=== PATIENT | male | born 1935 | race Caucasian/White ===

== ENCOUNTER 2020-09-09 07:20 | Observation (INO) ==
--- NOTE | 2020-08-15 09:12 | PAT Medication Instructions ---
Medication Instructions Date of Service August 15, 2020 Home Medications aspirin [Aspir-81] 81 mg PO PM lisinopril 20 mg PO PM [id number]-fvy-wppgc-vit K-lycop [One-A-Day Men's 50 Plus] 1 tab PO PM [id number] [Macular Health Formula] 1 cap PO PM naproxen sodium [Aleve] 220 mg PO BID PRN omeprazole magnesium [Prilosec OTC] 20 mg PO BID psyllium [Fiber Therapy (psyllium seed)] 3.4 g PO QAM ASK your surgeon for instructions naproxen sodium [Aleve] 220 mg PO BID PRN ASK your prescriber and surgeon aspirin [Aspir-81] 81 mg PO PM STOP taking 2 weeks before surgery (or as soon as possible if surgery is within 2 weeks) efzjhifs-wwa-arxam-vit K-lycop [One-A-Day Men's 50 Plus] 1 tab PO PM [id number] [Macular Health Formula] 1 cap PO PM DO NOT take the morning of surgery psyllium [Fiber Therapy (psyllium seed)] 3.4 g PO QAM Take morning of surgery With a small sip of water, OTHERWISE NOTHING TO EAT OR DRINK AFTER MIDNIGHT: omeprazole magnesium [Prilosec OTC] 20 mg PO BID Take evening before surgery lisinopril 20 mg PO PM omeprazole magnesium [Prilosec OTC] 20 mg PO BID Other Notes If you have any questions please call us at [phone] or [phone] or [phone] or [phone]
--- NOTE | 2020-08-16 11:17 | Anesthesiology Consultation ---
Date of Service August 16, 2020 Assessment & Plan (1) Encounter for pre-operative examination: - COVID screening: Per assessment on 08/16: Travel screen negative, no known COVID-19 positive contacts or current COVID-19 related symptoms. Patient is fully vaccinated. Surgeon arranging preop COVID testing (scheduled 09/03; [facility]). Awaiting results. - ASA instructions: per surgeon/prescriber Chart Review Chart Review: Acceptable Risk for Surgery and Patient seen in Pre Admission Testing Teaching & Discussion Pre-Anesthesia Teaching/Discussion Notes: Instructed NPO after midnight before surgery,except medications with 15 cc of water. Medication instructions provided according to the PAT guidelines. History Surgery Operation Date: 09/09/20 11:40 Proposed Procedures p Right Reverse Total Shoulder Arthroplasty - Yusuf Noe MD Height/Weight Height: 5 ft 6 in Weight: 72.3 kg Allergies Allergy/AdvReac Type Severity Reaction Status Date / Time codeine AdvReac Mild "Funny, Verified 08/16/20 11:18 strange" feeling Medications Home Medications Medication Instructions Recorded Confirmed Last Taken aspirin [Aspir-81] 81 mg PO PM 08/02/20 08/02/20 Unknown lisinopril 20 mg PO PM 08/02/20 08/02/20 Unknown tmvrdunk-sgn-okjyg-vit K-lycop 1 tab PO PM 08/02/20 08/02/20 Unknown [One-A-Day Men's 50 Plus] [id number]-[id number]-wdvoyh-[id number] 1 cap PO PM 08/02/20 08/02/20 Unknown [Macular Health Formula] naproxen sodium [Aleve] 220 mg PO BID PRN 08/02/20 08/02/20 Unknown omeprazole magnesium [Prilosec OTC] 20 mg PO BID 08/02/20 08/02/20 Unknown psyllium [Fiber Therapy (psyllium 3.4 g PO QAM 08/02/20 08/02/20 Unknown seed)] Past Medical History Medical History Anemia No known of blood transfusions Diverticular disease GERD (gastroesophageal reflux disease) controlled Hypertension Kidney stones passed without intervention Macular degeneration Osteoarthritis Exercise / Class Metabolic Activity II 4-5 Yardwork/Stairs/Walk up hill (one flight of stairs (no chest pain, no SOB)) Past Family History Family History Sister Diabetes Past Surgical History Surgical History History of arthroscopy of shoulder R/L History of carpal tunnel release right History of colonoscopy History of esophagogastroduodenoscopy (EGD) History of tooth extraction Hx of inguinal hernia repair R/L Past Anesthesia History No Hx of Anesthesia Complications and No Family Hx of Anesthesia Complications History of PONV No Hx of PONV and No Hx of Motion Sickness Social History Smoking Status: Former smoker Do You Dip or Chew Tobacco: No Smoking End Date: Quit 1995 Hx Alcohol Use: Yes Alcohol type: wine alcohol intake frequency: 0-2 drinks per day (1 glass wine/evening) Hx Substance Use: No substance use type: does not use Review of Systems No snoring. Patient denies chest pain, shortness of breath, dyspnea on exertion, fever, chills, cough, wheezing, palpitations. Physical Exam Vital Signs VITALS BP 142/72 P 78 TEMP 97.7 SP02 97%RA RESP 18 PHYSICAL Full neck and c-spine range of motion. Full TMJ range of motion. TMD 3 finger breaths Mallampati Score 3 Dentition: upper/lower partial Lungs: clear throughout to auscultation Cardiac: regular rate and rhythm, no murmurs noted Spine: normal Carotid arteries: negative bruit Extremities: no edema Testing Laboratory Results 08/16/20 11:52 08/16/20 11:52 PT 10.0 Seconds (9.0-12.0) 08/16/20 11:52 INR 1.0 (0.9-1.1) 08/16/20 11:52 APTT 25.2 Seconds (21.0-31.0) 08/16/20 11:52 Hemoglobin A1c 6.1 % (4.5-5.6) H 08/16/20 11:52 Urine Color Yellow 08/16/20 11:52 Urine Appearance Clear (Clear) 08/16/20 11:52 Urine pH 6.0 (4.5-7.5) 08/16/20 11:52 Ur Specific [place] 1.010 (1.000-1.030) 08/16/20 11:52 Urine Protein Negative (Negative) 08/16/20 11:52 Urine Glucose (UA) Negative (Negative) 08/16/20 11:52 Urine Ketones Negative (Negative) 08/16/20 11:52 Urine Nitrite Negative (Negative) 08/16/20 11:52 Ur Leukocyte Esterase Negative (Negative) 08/16/20 11:52 Blood Type O Positive 08/16/20 11:52 Antibody Screen NEGATIVE 08/16/20 11:52 Low WBC > to be forwarded to PCP for continuity of care* Electrocardiogram Date: 08/16/20 NSR with sinus arrhythmia at 76bpm. "Normal ECG." Chest X-Ray Date: 08/16/20 FINDINGS: Lung volumes are normal. There is no pneumothorax or pleural effusion. Cardiac size is normal. Mediastinal contours are normal. There is no evidence for pulmonary edema. A 5 mm right lower lobe nodule is unchanged from prior abdominal CT. This is benign given stability. There is no consolidation to suggest pneumonia. IMPRESSION: No acute cardiopulmonary findings.
--- NOTE | 2020-08-16 12:26 | XRay Report ---
XR chest Pre-admission PA/Lat CLINICAL HISTORY: Preoperative evaluation. COMPARISON STUDY: No previous studies for comparison. FINDINGS: Lung volumes are normal. There is no pneumothorax or pleural effusion. Cardiac size is norm al. Mediastinal contours are normal. There is no evidence for pulmonary edema. A 5 mm right lower lob e nodule is unchanged from prior abdominal CT. This is benign given stability. There is no consolidat ion to suggest pneumonia. IMPRESSION: No acute cardiopulmonary findings. ACT 112: Negative or not required by law. Electronically signed by: Braxton Cid M.D. 08/16/2020 12:24 PM
[2020-08-16 13:17] LABS: Appearance Urine Clear (Clear); Basophils # (auto) 0.03 K/uL (0-0.2); Basophils % (auto) 0.8 %; Bilirubin Urine Negative (Negative); Blood Urine Negative (Negative); Color Urine Yellow; Eosinophils # (auto) 0.23 K/uL (0-0.5); Eosinophils % (auto) 6.4 %; Glucose Urine UA Negative (Negative); Hematocrit (blood only) 38.5 % (42-52); Hemoglobin 12.9 g/dL (14.0-18.0); Ketones Urine Negative (Negative); Leukocyte Esterase Urine Negative (Negative); Lymphocytes # (auto) 0.72 K/uL (1.2-3.4); Lymphocytes % (auto) 20.2 %; Mean Corpuscular Hemoglobin 33.3 pg (25-34); Mean Corpuscular Hgb Conc 33.5 g/dL (32-36); Mean Corpuscular Volume 99.5 fL (80-100); Mean Platelet Volume 10.8 fL (7.4-10.4); Monocytes # (auto) 0.47 K/uL (0.11-0.59); Monocytes % (auto) 13.2 %; Neutrophils # (auto) 2.12 K/uL (1.4-6.5); Neutrophils % (auto) 59.4 %; Nitrite Urine Negative (Negative); Platelet Count 253 K/uL (130-400); Protein Urine Negative (Negative); RDW Coefficient of Variation 12.7 % (11.5-14.5); RDW Standard Deviation 46.4 fL (36.4-46.3); Red Blood Count 3.87 M/uL (4.7-6.1); Urobilinogen Urine Negative (Negative); White Blood Count 3.57 K/uL (4.8-10.8)
[2020-08-16 13:48] LABS: Partial Thromboplastin Time 25.2 Seconds (21.0-31.0)
[2020-08-16 14:38] LABS: BUN Creatinine Ratio 29.9 (10-20); Calcium 9.3 mg/dl (8.5-10.1); Creatinine Clr Calc Pharmacy 39.1 ml/min; Est GFR (African American) 59.7; Est GFR (Non-African American) 51.5
--- NOTE | 2020-08-16 16:06 | Electrocardiogram Report ---
Test Reason : Blood Pressure : / mmHG Vent. Rate : 076 BPM Atrial Rate : 076 BPM P-R Int : 160 ms QRS Dur : 094 ms QT Int : 370 ms P-R-T Axes : 071 086 025 degrees QTc Int : 416 ms Normal sinus rhythm with sinus arrhythmia Normal ECG When compared with ECG of 27-JAN-2013 15:09, No significant change was found Confirmed by Luis Orozco ([id number]) on 08/16/2020 4:06:03 PM Referred By: Yusuf Noe Confirmed By:Chuy Orozco
[2020-08-17 05:35] LABS: Estimated Average Glucose 128 mg/dl; Hemoglobin A1C 6.1 % (4.5-5.6)
--- NOTE | 2020-09-07 19:40 | History & Physical Report ---
Date of Service September 07, 2020 Assessment & Plan (1) Rotator cuff arthropathy of right shoulder: Treatment options discussed with patient. He has failed conservative measures as above. He would like to proceed with surgery. Risks, benefits and alternatives to surgery including but not limited to infection, DVT, pain, stiffness, need for revision surgery, damage to blood vessels, damage to nerves, PE, , were discussed with the patient and they wish to proceed. Plan for right reverse total shoulder arthroplasty at [facility] on 09/09/[address] Noe. All questions answered. He will follow up post operatively. History of Present Illness Chief Complaint: Right shoulder pain Primary Care Provider: Andres Irving MD 84 year old male with PMHx significant for HTN, anemia, GERD presents with ongoing right shoulder pain. He had an acute on chronic right shoulder injury with an irreparable rotator cuff tear. Has past history of rotator cuff repair on right shoulder. Pain interfering with his ability to carry out daily activities. He has failed conservative measures including injections, anti- inflammatories, and rehab. He would like to proceed with replacement. Patient denies headaches, sweats, fevers, chills, double vision, blurred vision, cough, sore throat, dysphagia, chest pain, sob, wheezing, n/v/d/c, numbness, tingling, fatigue, urinary symptoms, mood disorders. ROS positive for right shoulder pain and stiffness. Allergies Allergy/AdvReac Type Severity Reaction Status Date / Time codeine AdvReac Mild "Funny, Verified 08/16/20 11:18 strange" feeling Home Medications Medication Instructions Recorded Confirmed Type aspirin [Aspir-81] 81 mg PO PM 08/02/20 08/02/20 History lisinopril 20 mg PO PM 08/02/20 08/02/20 History afxxiezu-jwv-iyfdm-vit K-lycop 1 tab PO PM 08/02/20 08/02/20 History [One-A-Day Men's 50 Plus] [id number]-zi-xujojf-ngoq-[id number] 1 cap PO PM 08/02/20 08/02/20 History [Macular Health Formula] naproxen sodium [Aleve] 220 mg PO BID PRN 08/02/20 08/02/20 History omeprazole magnesium [Prilosec OTC] 20 mg PO BID 08/02/20 08/02/20 History psyllium [Fiber Therapy (psyllium 3.4 g PO QAM 08/02/20 08/02/20 History seed)] Past Med/Surg History Medical History Anemia No known of blood transfusions Diverticular disease GERD (gastroesophageal reflux disease) controlled Hypertension Kidney stones passed without intervention Macular degeneration Osteoarthritis Surgical History History of arthroscopy of shoulder R/L History of carpal tunnel release right History of colonoscopy History of esophagogastroduodenoscopy (EGD) History of tooth extraction Hx of inguinal hernia repair R/L Family History Sister Diabetes Social History Smoking Status: Former smoker Smoking End Date: Quit 1995; Second Hand Exposure: No; Do You Dip or Chew Tobacco: No; Tobacco Cessation Education Requested by Patient: No Hx Alcohol Use: Yes Alcohol type: wine Hx Substance Use: No Preferred Language: Maltese Communication Ability: Effective Extension Professor Required: No Beliefs That Will Affect Care: None Current Living Situation: Spouse Other Information That Helps Us Care for You: No Feels Safe at Home: Yes Safety Concerns: Feels Safe At This Time Assistive Devices: Glasses Assistive Devices Comment: partials top and bottom Review of Systems All systems reviewed & are unremarkable except as noted in HPI & below Physical Exam Constitutional: well developed and well nourished; no acute distress Eyes: PERRL, conjunctivae normal, anicteric sclerae ENMT: external ear and nose normal, oropharynx normal Neck: trachea midline, no thyromegaly Respiratory: normal respiratory effort, lungs clear to auscultation Cardiovascular: RRR, no murmur, no edema Musculoskeletal: Right shoulder: Painful ROM. Positive impingement signs. Tenderness anterior inferior acromion. ROM is to 160 degrees of FF, 80 degrees of abduction, 70 degrees of ER. Strength is 3+/5 ER, 5/5 IR, and 4-/5 abduction Skin: no rashes, warm and dry Neurologic: patellar DTR's 2+ bilat, sensation intact Psychiatric: A+Ox3, euthymic affect Results & Data ([facility]) Laboratory Results Lab Results 08/16/20 08/16/20 08/16/20 Range/Units 11:52 11:52 11:52 WBC 3.57 L (4.8-10.8) K/uL RBC 3.87 L (4.7-6.1) M/uL Hgb 12.9 L (14.0-18.0) g/dL Hct 38.5 L (42-52) % MCV 99.5 (80-100) fL MCH 33.3 (25-34) pg MCHC 33.5 (32-36) g/dL RDW Std Deviation 46.4 H (36.4-46.3) fL RDW Coeff of Chloe 12.7 (11.5-14.5) % Plt Count 253 (130-400) K/uL MPV 10.8 H (7.4-10.4) fL Immature Gran % (Auto) 0.0 % Neut % (Auto) 59.4 % Lymph % (Auto) 20.2 % [place] % (Auto) 13.2 % Eos % (Auto) 6.4 % Baso % (Auto) 0.8 % Neut # (Auto) 2.12 (1.4-6.5) K/uL Lymph # (Auto) 0.72 L (1.2-3.4) K/uL [place] # (Auto) 0.47 (0.11-0.59) K/uL Eos # (Auto) 0.23 (0-0.5) K/uL Baso # (Auto) 0.03 (0-0.2) K/uL Immature Gran # (Auto) 0.00 (0.00-0.02) K/uL PT 10.0 (9.0-12.0) Seconds INR 1.0 (0.9-1.1) APTT 25.2 (21.0-31.0) Seconds PTT Ratio 1.0 Sodium (136-145) mmol/L Potassium (3.5-5.1) mmol/L Chloride (98-107) mmol/L Carbon Dioxide (21-32) mmol/L Anion Gap (3-11) BUN (7-18) mg/dl Creatinine (0.6-1.4) mg/dl Est Cr Clr Drug Dosing ml/min Est GFR ( Amer) Est GFR (Non-Af Amer) BUN/Creatinine Ratio (10-20) Glucose (70-99) mg/dl Estimat Average Glucose mg/dl Hemoglobin A1c (4.5-5.6) % Calcium (8.5-10.1) mg/dl Albumin (3.4-5.0) gm/dl Urine Color Urine Appearance (Clear) Urine pH (4.5-7.5) Ur Specific [place] (1.000-1.030) Urine Protein (Negative) Urine Glucose (UA) (Negative) Urine Ketones (Negative) Urine Blood (Negative) Urine Nitrite (Negative) Urine Bilirubin (Negative) Urine Urobilinogen (Negative) Ur Leukocyte Esterase (Negative) Blood Type O Positive Antibody Screen NEGATIVE 08/16/20 08/16/20 08/16/20 Range/Units 11:52 11:52 11:52 WBC (4.8-10.8) K/uL RBC (4.7-6.1) M/uL Hgb (14.0-18.0) g/dL Hct (42-52) % MCV (80-100) fL MCH (25-34) pg MCHC (32-36) g/dL RDW Std Deviation (36.4-46.3) fL RDW Coeff of Chloe (11.5-14.5) % Plt Count (130-400) K/uL MPV (7.4-10.4) fL Immature Gran % (Auto) % Neut % (Auto) % Lymph % (Auto) % [place] % (Auto) % Eos % (Auto) % Baso % (Auto) % Neut # (Auto) (1.4-6.5) K/uL Lymph # (Auto) (1.2-3.4) K/uL [place] # (Auto) (0.11-0.59) K/uL Eos # (Auto) (0-0.5) K/uL Baso # (Auto) (0-0.2) K/uL Immature Gran # (Auto) (0.00-0.02) K/uL PT (9.0-12.0) Seconds INR (0.9-1.1) APTT (21.0-31.0) Seconds PTT Ratio Sodium 138 (136-145) mmol/L Potassium 5.0 (3.5-5.1) mmol/L Chloride 108 H (98-107) mmol/L Carbon Dioxide 27 (21-32) mmol/L Anion Gap 3.0 (3-11) BUN 38 H (7-18) mg/dl Creatinine 1.27 (0.6-1.4) mg/dl Est Cr Clr Drug Dosing 39.1 ml/min Est GFR ( Amer) 59.7 Est GFR (Non-Af Amer) 51.5 BUN/Creatinine Ratio 29.9 H (10-20) Glucose 101 H (70-99) mg/dl Estimat Average Glucose 128 mg/dl Hemoglobin A1c 6.1 H (4.5-5.6) % Calcium 9.3 (8.5-10.1) mg/dl Albumin 4.0 (3.4-5.0) gm/dl Urine Color Yellow Urine Appearance Clear (Clear) Urine pH 6.0 (4.5-7.5) Ur Specific [place] 1.010 (1.000-1.030) Urine Protein Negative (Negative) Urine Glucose (UA) Negative (Negative) Urine Ketones Negative (Negative) Urine Blood Negative (Negative) Urine Nitrite Negative (Negative) Urine Bilirubin Negative (Negative) Urine Urobilinogen Negative (Negative) Ur Leukocyte Esterase Negative (Negative) Blood Type Antibody Screen Diagnostic Findings Right shoulder radiographs: X-rays of his right shoulder demonstrate proximal migration of the humerus consistent with a rotator cuff tear, cystic changes in the greater tuberosity consistent with degenerative changes, previous distal clavicle excision, and previous subacromial decompression and type I acromion. Glenohumeral joint on axillary view demonstrates maintained glenohumeral joint space with some small periarticular osteophytes. This is all consistent with chronic rotator cuff arthropathy, failed rotator cuff repair. MRI demonstrates massive retracted rotator cuff tear with humeral head elevation, moderate fatty atrophy
[~2020-09-09 07:20] MED LIST: ACETAMINOPHEN 500 MG TAB PO SCH; BUPIVACAINE 0.5 % 5 MG/1 ML PF 10ML VIAL ONE; CeleBREX 200 MG CAP PO SCH; FAMOTIDINE 20 MG TAB PO SCH; GABAPENTIN 300 MG CAP PO SCH; LR 15ML/HR IV SCH; METOCLOPRAMIDE HCL 10 MG TABLET PO SCH; ceFAZolin 1000MG 1,000 MG/7.5 ML SYR IV SCH; dexAMETHasone 4 MG TAB PO SCH
[2020-09-09] MEDS ORDERED: fentaNYL citrate 100 MCG/2 ML VIAL ONE (08:12)
[2020-09-09] MEDS ORDERED: MIDAZOLAM HCL 1 MG/ML 2ML VIAL ONE (08:12)
[2020-09-09] MEDS ORDERED: ROCURONIUM BROMIDE 10 MG/ML 5 ML VIAL IV ONE (08:35)
[2020-09-09] MEDS ORDERED: NEOSTIGMINE METHYLSULFATE 5 MG/5 ML SYR ONE ×2 (08:35→12:00)
[2020-09-09] MEDS ORDERED: GLYCOPYRROLATE 0.2 MG/ML VIAL ONE ×2 (08:35→12:00)
[2020-09-09] MEDS ORDERED: DEXAMETHASONE SOD INJ 4 MG/ML VIAL ONE (08:35)
[2020-09-09] MEDS ORDERED: PROPOFOL IV EMULSION 10 MG/ML 20 ML VIAL IV ONE (08:35)
[2020-09-09] MEDS ORDERED: LIDOCAINE HCL 2% 2 ML VIAL/AMP(20MG/ML) INFIL ONE (08:35)
[2020-09-09] MEDS ORDERED: ONDANSETRON INJ 2 MG/ML 2 ML VIAL ONE (08:35)
--- NOTE | 2020-09-09 09:31 | History & Physical Bridge Note ---
Date of Service September 09, 2020 History & Physical Bridge Note I have examined the patient, reviewed the History & Physical and in the interval since the performance of the History & Physical I have noted the following changes of clinical significance: no changes noted
[2020-09-09] MEDS ORDERED: BACITRACIN INJ 50,000 UNIT VIAL ONE (09:55)
--- NOTE | 2020-09-09 12:35 | Operative Report ---
Post Operative Report Pre & Post Diagnosis Operation Date: 09/09/20 09:20 Pre-Op Diagnosis: Right Shoulder rotator cuff arthropathy failed rotator cuff repair history of open rotator cuff repair decompression distal clavicle excision Post-Op Diagnosis: Right Shoulder rotator cuff arthropathy failed rotator cuff repair history of open rotator cuff repair decompression distal clavicle excision chronic biceps rupture I identified the patient and participated in the time-out.: Yes Procedure Operation Date: 09/09/20 09:20 Actual Procedures p Right Reverse Total Shoulder Arthroplasty(Right) - Yusuf Noe MD Surgeon Yusuf Noe MD Termite Control Technician Zack RED Estimated Blood Loss 30 Findings Consistent with Post-Op Diagnosis Specimens Humeral head Drains 2 Hemovac Anesthesia Type General Regional Complications none Disposition Accompanied Patient To Recovery: No Disposition: Recovery Room Indications 84-year-old male with chronic right shoulder pain pseudoparalytic arm decreased function chronic weakness. History of open rotator cuff repair surgery decompression distal clavicle excision radiographically performed years ago. Radiographs demonstrate rotator cuff arthropathy glenohumeral DJD proximal migration humerus. Description of Procedure The patient was taken to the operating room and anesthetized under regional block and general anesthetic. The patient was positioned on the operating table in a 30 beach chair position with a towel roll under the medial border of the right scapula. The arm was draped free to be able to manipulate the shoulder as needed. The right upper extremity was prepped and draped in usual sterile fashion. Exam demonstrated passive forward flexion to 130 degrees and abduction to 70 degrees and external rotation 35 degrees. Old saber incision over superior anterior shoulder. An anterior deltopectoral approach was performed. A longitudinal incision was made in the deltopectoral interval. The skin was incised sharply. Subcutaneous flaps were elevated off the fascia. The cephalic vein was dissected out and retracted lateral with the deltoid. The clavipectoral fascia was divided at the lateral margin of the conjoined tendon and extended up to the CA ligament. The following findings were noted the subscapularis and some of the anterior superior rotator cuff supraspinatus tendon was intact. Remainder of the supraspinatus and anterior infraspinatus were torn. There was evidences of suture material from prior repair of rotator cuff. There was thickened subacromial bursal tissue that was resected.. The upper centimeter of the pectoralis was released for inferior exposure. The biceps tendon findings demonstrated absent biceps tendon consistent with distal retraction. The subscapularis tendon was taken down off the lesser tuberosity using a subperiosteal dissection. A #1 Vicryl traction suture was placed into the free end of the subscapularis tendon and capsule. The subscapular muscle fibers were split longitudinally at the level of the circumflex vessels. The circumflex vessels were identified and tied off with silk ties and divided laterally. A Kitner elevator was used to free up the inferior fibers of the subscapularis off of the capsule. The axillary nerve was identified with a tug test and protected with a blunt Marcus retractor between the nerve and the capsule. The subscapularis tendon was then taken down off of the lesser tuberosity subperiosteally and subperiosteal dissection was performed along the neck of the humerus as the arm is gradually externally rotated exposing the humeral head. The humeral head findings demonstrated moderate osteoarthritis with grade 2-3 osteoarthritis. A Radford elevator was used to assist in releasing the capsule of the neck of the humerus. The capsule was divided with Sood scissors down to the glenoid released off the anterior glenoid and the rotator interval was released to meet the capsular release and a 360 release of the subscapularis was accomplished. A Fukuda retractor was placed into the joint retracting the humeral head posterior. Glenoid findings demonstrated grade III chondromalacia with some anterior and inferior glenoid bone spurs causing the glenoid to be more dished out in appearance. The labrum was resected. an anterior-inferior and posterior inferior capsular release were performed with electrocautery and a Radford elevator on bone with the axillary nerve protected inferiorly by the retractor. Attention was then taken to the humeral preparation. The cutting guide was placed into the humeral head. It was positioned at 20 of retroversion. Oscillating saw was used to resect the humeral head giving the cut above the level of the posterior rotator cuff insertion site. The humerus was then prepared for the stem. I used the ascend flex stem from [employer]. The sizing broaches were used followed by trial broaches up to a size 3B long which had the appropriate fit and fill. The appropriate sized cut protector was placed. The humerus was then retracted posterior to the glenoid. The glenoid was sized for a 29 standard aequalis baseplate. The guide for the baseplate was positioned in a 10 inferior tilt and the central drill hole was made. The reamer for the 29 mm aequalis standard post baseplate was used. The central drill was widened for the peg. Some callus bone graft was placed into around the central post region prior to inserting the baseplate. The aequalis hydroxyapatite-coated standard post 29 mm baseplate was impacted into position. There was a tight press-fit. The base plate was transfixed with superior and inferior locking screws and anterior and posterior compression screws with stable fixation. The fan reamer was used for the 42 millimeter glenoid sphere. After irrigation the 42 mm standard glenoid sphere was impacted onto the baseplate and the security screw was tightened. Attention was taken back to the humerus. The cut protector was removed and the +0 high offset humeral tray trial was assembled to the trial stem rotated appropriately to get bony coverage and then screwed in position. A trial reduction was performed. A +6,42 mm reversed trial insert demonstrated good stability and no shuck. The trials were removed. 3 drill holes are made into the harder bone in the bicipital groove area and 3 #5 FiberWire sutures were placed transosseously. The canal was irrigated with antibiotic solution with bacitracin. The final component was assembled. The final component was 3B long PTC stem assembled to the plus or high offset tray with a 42 mm +6 reversed polyethylene insert. This was then impacted into the humerus with a tight press-fit. It was reduced to the glenoid sphere. Stability was verified. Subscapularis was repaired with the #5 FiberWire sutures using Nishant-Skyler suture technique. Lateral row soft tissue repair was performed with #2 FiberWire [id number]-ul-faair sutures. The pectoralis was repaired with #2 FiberWire btbumt-qu-wgcjj sutures. The arm was taken through a range of motion which demonstrated 130 degrees forward elevation abduction to 80 degrees external rotation 45 degrees without tension on repair. The implant was stable through the range of motion tested. The wound was copiously irrigated. 2 Hemovac drains were placed. The deltopectoral interval was closed with ovqtcz-wa-wznen #1 Vicryl sutures. The subcutaneous tissues were closed with 2- 0 Vicryl sutures. The skin was closed with monica. Sterile dressings were applied and a shoulder immobilizer. Zack RED my physician civil engineering assistant assisted in the procedure to the entire procedure including patient positioning arm positioning prepping and draping soft tissue retraction instrument management suture management and performed the subcutaneous and skin closure and will participate in the postoperative care of the patient. I attest to the content of the Intraoperative Record and any orders documented therein. Any exceptions are noted below.
--- NOTE | 2020-09-09 13:28 | XRay Report ---
XR shoulder RT min 2V routine CLINICAL HISTORY: Post shoulder surgery COMPARISON STUDY: None. FINDINGS: Status post reverse right total shoulder arthroplasty. The hardware is intact. No fracture or dislocation. Skin monica and surgical drains are in place. IMPRESSION: Status post reverse right total shoulder arthroplasty. No evidence for hardware complica tion. ACT 112: Negative or not required by law. Electronically signed by: Nitish Lucero M.D. 09/09/2020 1:27 PM
[2020-09-09] MEDS ORDERED: MAGNESIUM HYDROXIDE SUSP 30 ML UDC PO PRN (13:37)
[2020-09-09] MEDS ORDERED: NALOXONE HCL 0.4 MG/1 ML VIAL/CARP IV PRN (13:37)
[2020-09-09] MEDS ORDERED: TAMSULOSIN HCL 0.4 MG CAP PO PRN (13:37)
[2020-09-09] MEDS ORDERED: SODIUM CHLORIDE 0.9% 1000ML 1,000 ML IV SCH (13:37)
[2020-09-09] MEDS ORDERED: METOCLOPRAMIDE HCL INJ 5 MG/ML 2 ML VIAL IV PRN (13:37)
[2020-09-09] MEDS ORDERED: oxyCODONE HCL IR 5 MG TAB (IMMEDIATE RELEASE) PO PRN (13:37)
[2020-09-09] MEDS ORDERED: ONDANSETRON INJ 2 MG/ML 2 ML VIAL IV PRN (13:37)
[2020-09-09] MEDS ORDERED: bisacodyL 10 MG SUPP PR PRN (13:37)
[2020-09-09] MEDS ORDERED: HYDROmorphone INJ 0.5 MG/0.5 ML SYR IV PRN (13:37)
--- NOTE | 2020-09-09 13:43 | Anesthesiology Progress Note ---
Date of Service September 09, 2020 Anesthesia Post Procedure Vital Signs Vital Signs: Temp Pulse Pulse Resp BP Pulse Ox 09/09/20 13:15 36.6 C 80 16 142/69 H 93 09/09/20 13:05 37.2 C 62 22 153/76 H 92 09/09/20 12:55 88 21 131/75 97 09/09/20 12:45 83 20 134/70 97 09/09/20 12:37 36.4 C L 85 17 145/76 H 97 09/09/20 08:00 36.6 C 87 20 187/89 H 99 Transfer of Care Handoff Completed per policy Notes Mental Status: alert / awake / arousable Patient Amnestic to Procedure: Yes Nausea / Vomiting: adequately controlled Pain: adequately controlled Airway Patency, RR, SpO2: stable & adequate BP & HR: stable & adequate Hydration State: stable & adequate Anesthetic Complications: no major complications apparent Notes: block working well in pacu
[2020-09-09] MEDS: ACETAMINOPHEN 500 MG TAB PO SCH ×2 (14:12→22:40)
[2020-09-09] MEDS: ceFAZolin 1000MG 1,000 MG/7.5 ML SYR IV SCH (17:54)
--- NOTE | 2020-09-09 18:21 | Hospitalist Consultation ---
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 Doing well Pain control, bowel regimen as per orthopedic surgery DVT prophylaxis as per orthopedic surgery Check CBC, BMP in the morning (2) Hypertension: Blood pressures are normal Will hold evening lisinopril until renal function checked in the morning (3) GERD (gastroesophageal reflux disease): With a history of Pena's esophagus Continue home PPI twice daily Continue surveillance EGDs with GI as directed (4) Anemia: Mild microcytic anemia, preoperative hemoglobin is 12.9 Follow CBC in the morning Follow-up as an outpatient (5) CKD (chronic kidney disease) stage 3, GFR 30-59 ml/min: GFR 57 preoperatively Follow BMP Holding lisinopril as above to avoid BREANNE in the setting of postoperative blood loss and hypotension (6) Prediabetes: Preoperative hemoglobin A1c 6.1% Follow-up as an outpatient Watch for hyperglycemia here (7) Hyperlipidemia: Not on medication for this (8) Osteoarthritis: but is listed as a diagnosis in his outpatient chart Noted, status post shoulder arthroplasty as above (9) DVT prophylaxis: SCDs On aspirin 81 mg once daily for now Defer to orthopedic surgery for any further DVT prophylaxis Disposition-continued stay medical/surgical floor Will need PT/OT History of Present Illness Reason for Consultation: Postoperative medical management Requesting Physician: Dr. Noe Attending Physician: Yusuf Noe MD History of Present Illness This patient is an 84-year-old man with a history of HTN, GERD with Pena's esophagus, Macrocytic anemia, hyperlipidemia, Nephrolithiasis, prediabetes, CKD stage III, and osteoarthritis who is here status post right reverse total shoulder arthroplasty. The hospitalist service is consulted for postoperative medical management. He feels very well. He has no pain in the shoulder. Denies chest pain or shortness of breath. No nausea or vomiting. He is tolerating p.o. No abdominal pain. He has no complaints. Allergies Allergy/AdvReac Type Severity Reaction Status Date / Time codeine AdvReac Mild "Funny, Verified 09/09/20 07:57 strange" feeling Home Medications Medication Instructions Recorded Confirmed Type aspirin [Aspir-81] 81 mg PO PM 08/02/20 09/09/20 History lisinopril 20 mg PO PM 08/02/20 09/09/20 History [id number]-[id number] K-lycop 1 tab PO PM 08/02/20 09/09/20 History [One-A-Day Men's 50 Plus] [id number] 1 cap PO PM 08/02/20 09/09/20 History [Macular Health Formula] naproxen sodium [Aleve] 220 mg PO BID PRN 08/02/20 09/09/20 History omeprazole magnesium [Prilosec OTC] 20 mg PO BID 08/02/20 09/09/20 History psyllium [Fiber Therapy (psyllium 3.4 g PO QAM 08/02/20 09/09/20 History seed)] Patient History Medical History (Updated 09/09/20 @ 18:29 by Rosanne Batista MD) Anemia No known of blood transfusions CKD (chronic kidney disease) stage 3, GFR 30-59 ml/min Diverticular disease GERD (gastroesophageal reflux disease) controlled Hyperlipidemia Hypertension Kidney stones passed without intervention Macular degeneration Osteoarthritis Prediabetes Surgical History History of arthroscopy of shoulder R/L History of carpal tunnel release right History of colonoscopy History of esophagogastroduodenoscopy (EGD) History of tooth extraction Hx of inguinal hernia repair R/L Status post total shoulder arthroplasty Family History Sister Diabetes Social History Smoking Status: Former smoker Smoking End Date: Quit 1995; Second Hand Exposure: No; Do You Dip or Chew Tobacco: No; Tobacco Cessation Education Requested by Patient: No Hx Alcohol Use: Yes Alcohol type: wine Hx Substance Use: No Preferred Language: Palestinian Communication Ability: Effective 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 Beliefs That Will Affect Care: None Current Living Situation: Spouse Other Information That Helps Us Care for You: No Feels Safe at Home: Yes Safety Concerns: Feels Safe At This Time Assistive Devices: Glasses Assistive Devices Comment: partials top and bottom Review of Systems Review of Systems: All systems reviewed & are unremarkable except as noted in HPI & below Physical Exam Constitutional: WD/WN, vitals as above Eyes: + anicteric sclerae Neck: trachea midline, no thyromegaly Respiratory: normal respiratory effort, lungs clear to auscultation Cardiovascular: RRR, no murmur, no edema Chest (Breasts): Chest: normal inspection of chest Gastrointestinal (Abdomen): normal bowel sounds, soft, nontender, no hepatosplenomegaly Musculoskeletal: Extremities: + extremities abnormal to inspection (Right shoulder in sling with dressing in place and vacuum with bloody drain), no cyanosis and no clubbing Skin: no rashes, warm and dry Neurologic: moves all extremities and awake; no focal motor deficits Psychiatric: A+Ox3, euthymic affect Lymphatic: no lymphedema Results & Data Results & [facility] ([facility]) Vital Signs (Past 12 Hours) Vital Signs Temp Pulse Pulse Resp BP Pulse Ox 09/09/20 16:20 36.5 C 95 H 15 113/65 96 09/09/20 15:15 107 H 16 136/73 92 09/09/20 14:17 36.4 C L 102 H 18 151/75 H 94 09/09/20 13:53 36.6 C 96 H 16 149/72 H 94 09/09/20 13:15 36.6 C 80 16 142/69 H 93 09/09/20 13:05 37.2 C 62 22 153/76 H 92 09/09/20 12:55 88 21 131/75 97 09/09/20 12:45 83 20 134/70 97 09/09/20 12:37 36.4 C L 85 17 145/76 H 97 09/09/20 08:00 36.6 C 87 20 187/89 H 99 Laboratory Results Preoperative laboratory values reviewed Diagnostic Findings Preoperative chest x-ray reviewed-stable pulmonary nodule ECG Additional Comments: Preoperative ECG reviewed with normal sinus rhythm and otherwise normal PG Care Time/CCT Total # of Minutes Spent Total Time Spent with Patient: Total time spent is greater than 50% in coordination of care (as documented) at patient's floor/unit and/or counseling patient: Coding Level of Care Code 13379 Inpt Consult Level 3 Diagnoses Status post total shoulder arthroplasty Z96.619 Hypertension I10 GERD (gastroesophageal reflux disease) K21.9 Anemia D64.9 CKD (chronic kidney disease) stage 3, GFR 30-59 ml/min N18.30 Prediabetes R73.03 Hyperlipidemia E78.5 Osteoarthritis M19.90 DVT prophylaxis Z29.9
[2020-09-09] MEDS: PANTOprazole 40 MG TAB PO SCH (20:12)
[2020-09-09] MEDS: DOCUSATE SODIUM 100 MG CAP PO SCH (20:12)
[2020-09-09] MEDS ORDERED: SENNA 8.6 MG TAB PO SCH (21:00)
[2020-09-09] MEDS ORDERED: lisinopril 20 MG TAB PO SCH (21:00)
[2020-09-09] MEDS ORDERED: NON-FORMULARY MEDICATION (Mv-Mn-Lutein-Zeax-Bilber-Hb277 [Macular Health Formula] 5-1-7.5 PO SCH (21:00)
[2020-09-09] MEDS ORDERED: MULTIVIT MIN FOLIC VIT K LYCOP PO SCH (21:00)
[2020-09-09] MEDS ORDERED: [UNRECOGNIZED DRUG - OTHER] PO SCH (21:00)
[2020-09-10] MEDS: ceFAZolin 1000MG 1,000 MG/7.5 ML SYR IV SCH (02:16)
[2020-09-10] MEDS: ACETAMINOPHEN 500 MG TAB PO SCH ×2 (06:34→14:52)
[2020-09-10] MEDS: DOCUSATE SODIUM 100 MG CAP PO SCH (07:32)
[2020-09-10] MEDS: PANTOprazole 40 MG TAB PO SCH (07:32)
[2020-09-10 08:00] LABS: Hematocrit (blood only) 33.1 % (42-52); Hemoglobin 11.4 g/dL (14.0-18.0); Immature Granulocytes # (auto) 0.02 K/uL (0.00-0.02); Immature Granulocytes % (auto) 0.2 %; Lymphocytes # (auto) 0.67 K/uL (1.2-3.4); Mean Corpuscular Hemoglobin 33.7 pg (25-34); Mean Corpuscular Hgb Conc 34.4 g/dL (32-36); Mean Corpuscular Volume 97.9 fL (80-100); Mean Platelet Volume 10.6 fL (7.4-10.4); Monocytes # (auto) 1.11 K/uL (0.11-0.59); Monocytes % (auto) 11.6 %; Neutrophils # (auto) 7.79 K/uL (1.4-6.5); Neutrophils % (auto) 81.2 %; Platelet Count 260 K/uL (130-400); RDW Coefficient of Variation 12.8 % (11.5-14.5); Red Blood Count 3.38 M/uL (4.7-6.1); White Blood Count 9.59 K/uL (4.8-10.8)
--- NOTE | 2020-09-10 08:06 | Orthopedic Progress Note ---
Date of Service September 10, 2020 Assessment & Plan (1) Rotator cuff arthropathy of right shoulder: Postop day 1 status post right reverse total shoulder arthroplasty. PT/OT protocols. Nonweightbearing on the right upper extremity. DVT prophylaxis-aspirin, SCDs. Pain management as written. Labs pending DC planning-patient is planning for outpatient PT when he starts several weeks from now. Admission and Anticipated Discharge Date Admission Date: September 09, 2020 Subjective Postop day 1 Patient was ambulating out of the bathroom when I came into the room. He is d oing quite well this morning. Pain is controlled. He states that his block is almost worn off. He is hoping to go home today. He denies shortness of breath, chest pain, lightheadedness. Physical Exam Physical Exam: Dressings are clean, dry, and intact. He has good range of motion of his right elbow, wrist and fingers. 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 Hemovac drainage was 50 mL from the previous shift. Results & Data ([facility]) Vital Signs (Past 12 Hours) Vital Signs Temp Pulse Resp BP Pulse Ox 09/10/20 07:40 36.9 C 90 18 129/79 96 09/10/20 02:22 36.7 C 79 14 120/65 95 09/09/20 22:43 36.6 C 88 18 138/73 95
[2020-09-10 08:28] LABS: BUN Creatinine Ratio 23.5 (10-20); Calcium 8.9 mg/dl (8.5-10.1); Creatinine Clr Calc Pharmacy 35.2 ml/min; Est GFR (African American) 52.6; Est GFR (Non-African American) 45.4; Potassium 4.2 mmol/L (3.5-5.1)
[2020-09-10] MEDS ORDERED: MULTIVITAMIN TAB PO SCH (09:00)
--- NOTE | 2020-09-10 11:07 | Hospitalist Progress Note ---
Date of Service September 10, 2020 Assessment & Plan (1) Status post total shoulder arthroplasty: Status post right reverse total shoulder arthroplasty Doing well Pain control, bowel regimen as per orthopedic surgery DVT prophylaxis as per orthopedic surgery Hemoglobin only with mild drop Creatinine with minor increase as below PT/OT evaluations completed Patient likely to be discharged today to orthopedics (2) Hypertension: Blood pressures are normal Will continue to again hold evening lisinopril this evening given minor increase in creatinine and then instructed patient okay to restart lisinopril on 09/11 Follow blood pressures at home-he has a blood pressure cuff (3) GERD (gastroesophageal reflux disease): With a history of Pena's esophagus Continue home PPI twice daily Continue surveillance EGDs with GI as directed (4) Anemia: Mild microcytic anemia, preoperative hemoglobin is 12.9 and postop day 1 hemoglobin only down to 11.4, hemodynamically stable Follow-up as an outpatient (5) CKD (chronic kidney disease) stage 3, GFR 30-59 ml/min: GFR 57 preoperatively Creatinine mildly increased 1.4 today, he is making urine and emptying his bladder Continue to hold lisinopril for tonight but can restart on 09/11 Encouraged fluid intake -Follow BMP as an outpatient with PCP in 1 week (6) Prediabetes: Preoperative hemoglobin A1c 6.1% Follow-up as an outpatient Watch for hyperglycemia here-none so far (7) Hyperlipidemia: Not on medication for this (8) Osteoarthritis: but is listed as a diagnosis in his outpatient chart Noted, status post shoulder arthroplasty as above (9) DVT prophylaxis: SCDs On aspirin 81 mg once daily for now Defer to orthopedic surgery for any further DVT prophylaxis Disposition-medically stable for discharge to home Hospitalist service will sign off at this time Admission and Anticipated Discharge Date Admission Date: September 09, 2020 Subjective Feels very well today. Has some pain but is managed. Denies nausea or vomiting, no abdominal pain, no chest pain or shortness of breath. He reports he had some slow flow of his urine overnight and had to urinate every 2 hours but now is improved and he is emptying his bladder. He is drinking plenty fluids. He is anxious to get home today. I discussed his care with the orthopedics [facility]. Review of Systems Review of Systems: All systems reviewed & are unremarkable except as noted in HPI & below Physical Exam Constitutional: WD/WN, vitals as above Eyes: + anicteric sclerae Neck: trachea midline, no thyromegaly Respiratory: normal respiratory effort, lungs clear to auscultation Cardiovascular: RRR, no murmur, no edema Extremities: no calf tenderness Chest (Breasts): Chest: normal inspection of chest Gastrointestinal (Abdomen): normal bowel sounds, soft, nontender, no hepatosplenomegaly Musculoskeletal: Extremities: + extremities abnormal to inspection (Right shoulder in sling with dressing in place and vacuum with bloody drain), no cyanosis and no clubbing Skin: no rashes, warm and dry Neurologic: moves all extremities and awake; no focal motor deficits Psychiatric: A+Ox3, euthymic affect Lymphatic: no lymphedema Results & Data Results & Data ([facility]) Vital Signs (Past 12 Hours) Vital Signs Temp Pulse Resp BP Pulse Ox 09/10/20 07:40 36.9 C 90 18 129/79 96 09/10/20 02:22 36.7 C 79 14 120/65 95 Laboratory Results 09/10/20 07:31 09/10/20 07:31 PG Care Time/CCT Total # of Minutes Spent Total Time Spent with Patient: Total time spent is greater than 50% in coordination of care (as documented) at patient's floor/unit and/or counseling patient: Coding Level of Care Code 39112 Subseq Hosp Care Lvl 2 Diagnoses Status post total shoulder arthroplasty Z96.619 Hypertension I10 GERD (gastroesophageal reflux disease) K21.9 Anemia D64.9 CKD (chronic kidney disease) stage 3, GFR 30-59 ml/min N18.30 Prediabetes R73.03 Hyperlipidemia E78.5 Osteoarthritis M19.90 DVT prophylaxis Z29.9
[2020-09-10] MEDS ORDERED: ASPIRIN 81 MG ECTAB PO SCH (21:00)
--- NOTE | 2020-09-11 18:59 | Discharge Summary ---
Date of Service September 11, 2020 Admission HPI Per Admitting Provider 84 year old male with PMHx significant for HTN, anemia, GERD presents with ongoing right shoulder pain. He had an acute on chronic right shoulder injury with an irreparable rotator cuff tear. Has past history of rotator cuff repair on right shoulder. Pain interfering with his ability to carry out daily activities. He has failed conservative measures including injections, anti- inflammatories, and rehab. He would like to proceed with replacement. Patient denies headaches, sweats, fevers, chills, double vision, blurred vision, cough, sore throat, dysphagia, chest pain, sob, wheezing, n/v/d/c, numbness, tingling, fatigue, urinary symptoms, mood disorders. ROS positive for right shoulder pain and stiffness. Admission Exam Per Admitting Provider Constitutional: well developed and well nourished; no acute distress Eyes: PERRL, conjunctivae normal, anicteric sclerae ENMT: external ear and nose normal, oropharynx normal Neck: trachea midline, no thyromegaly Respiratory: normal respiratory effort, lungs clear to auscultation Cardiovascular: RRR, no murmur, no edema Musculoskeletal: Right shoulder: Painful ROM. Positive impingement signs. Tenderness anterior inferior acromion. ROM is to 160 degrees of FF, 80 degrees of abduction, 70 degrees of ER. Strength is 3+/5 ER, 5/5 IR, and 4-/5 abduction Skin: no rashes, warm and dry Neurologic: patellar DTR's 2+ bilat, sensation intact Psychiatric: A+Ox3, euthymic affect Principal Diagnosis Right shoulder rotator cuff arthropathy Discharge Exam Constitutional well developed and well nourished; no acute distress Eyes PERRL, conjunctivae normal, anicteric sclerae ENMT external ear and nose normal, oropharynx normal Neck trachea midline, no thyromegaly Respiratory normal respiratory effort, lungs clear to auscultation Cardiovascular RRR, no murmur, no edema Skin no rashes, warm and dry Neurologic patellar DTR's 2+ bilat, sensation intact Psychiatric A+Ox3, euthymic affect Discharge Data Allergies Allergy/AdvReac Type Severity Reaction Status Date / Time codeine AdvReac Mild "Funny, Verified 09/09/20 07:57 strange" feeling Consultations 09/05/20 11:58 Consult Hospitalist Routine Procedures Performed Operation Date: 09/09/20 09:20 Actual Procedures p Right Reverse Total Shoulder Arthroplasty(Right) - Yusuf Noe MD Ordered Studies 09/09/20 05:00 US - OR guided needle placemen Routine Hospital Course (1) Rotator cuff arthropathy of right shoulder: Patient presented for same day admission following right reversee total shoulder arthroplasty on 09/09/20. He tolerated procedure well. The Patient had an uneventful hospital course. Post-operatively, his activity was progressed and well tolerated. They participated in PT. Labs remained stable- lowest hemoglobin recorded: 11.[address] Rosanne Batista of medical service was consulted for medical management during admission. Pain controlled on oral medications. Please refer to daily progress notes and PT notes for complete details. After exam on 09/10/20, patient was felt to be stable for discharge home with plans on completing home exercise program until directed to start PT. Patient will f/u in the office in about 2 weeks for further evaluation including x-rays and incision check, sooner if having any issues or concerns. Postop day 1 status post right reverse total shoulder arthroplasty. PT/OT protocols. Nonweightbearing on the right upper extremity. DVT prophylaxis-aspirin, SCDs. Pain management as written. Labs pending DC planning-patient is planning for outpatient PT when he starts several weeks from now. Lab Results 08/16/20 08/16/20 08/16/20 Range/Units 11:52 11:52 11:52 WBC 3.57 L (4.8-10.8) K/uL RBC 3.87 L (4.7-6.1) M/uL Hgb 12.9 L (14.0-18.0) g/dL Hct 38.5 L (42-52) % MCV 99.5 (80-100) fL MCH 33.3 (25-34) pg MCHC 33.5 (32-36) g/dL RDW Std Deviation 46.4 H (36.4-46.3) fL RDW Coeff of Chloe 12.7 (11.5-14.5) % Plt Count 253 (130-400) K/uL MPV 10.8 H (7.4-10.4) fL Immature Gran % (Auto) 0.0 % Neut % (Auto) 59.4 % Lymph % (Auto) 20.2 % [place] % (Auto) 13.2 % Eos % (Auto) 6.4 % Baso % (Auto) 0.8 % Neut # (Auto) 2.12 (1.4-6.5) K/uL Lymph # (Auto) 0.72 L (1.2-3.4) K/uL [place] # (Auto) 0.47 (0.11-0.59) K/uL Eos # (Auto) 0.23 (0-0.5) K/uL Baso # (Auto) 0.03 (0-0.2) K/uL Immature Gran # (Auto) 0.00 (0.00-0.02) K/uL PT 10.0 (9.0-12.0) Seconds INR 1.0 (0.9-1.1) APTT 25.2 (21.0-31.0) Seconds PTT Ratio 1.0 Sodium (136-145) mmol/L Potassium (3.5-5.1) mmol/L Chloride (98-107) mmol/L Carbon Dioxide (21-32) mmol/L Anion Gap (3-11) BUN (7-18) mg/dl Creatinine (0.6-1.4) mg/dl Est Cr Clr Drug Dosing ml/min Est GFR ( Amer) Est GFR (Non-Af Amer) BUN/Creatinine Ratio (10-20) Glucose (70-99) mg/dl Estimat Average Glucose mg/dl Hemoglobin A1c (4.5-5.6) % Calcium (8.5-10.1) mg/dl Albumin (3.4-5.0) gm/dl Urine Color Urine Appearance (Clear) Urine pH (4.5-7.5) Ur Specific [place] (1.000-1.030) Urine Protein (Negative) Urine Glucose (UA) (Negative) Urine Ketones (Negative) Urine Blood (Negative) Urine Nitrite (Negative) Urine Bilirubin (Negative) Urine Urobilinogen (Negative) Ur Leukocyte Esterase (Negative) COVID-19 Eval Order SARS-CoV-2, RNA, NAAT (NEGATIVE) Blood Type O Positive Antibody Screen NEGATIVE 08/16/20 08/16/20 08/16/20 Range/Units 11:52 11:52 11:52 WBC (4.8-10.8) K/uL RBC (4.7-6.1) M/uL Hgb (14.0-18.0) g/dL Hct (42-52) % MCV (80-100) fL MCH (25-34) pg MCHC (32-36) g/dL RDW Std Deviation (36.4-46.3) fL RDW Coeff of Chloe (11.5-14.5) % Plt Count (130-400) K/uL MPV (7.4-10.4) fL Immature Gran % (Auto) % Neut % (Auto) % Lymph % (Auto) % [place] % (Auto) % Eos % (Auto) % Baso % (Auto) % Neut # (Auto) (1.4-6.5) K/uL Lymph # (Auto) (1.2-3.4) K/uL [place] # (Auto) (0.11-0.59) K/uL Eos # (Auto) (0-0.5) K/uL Baso # (Auto) (0-0.2) K/uL Immature Gran # (Auto) (0.00-0.02) K/uL PT (9.0-12.0) Seconds INR (0.9-1.1) APTT (21.0-31.0) Seconds PTT Ratio Sodium 138 (136-145) mmol/L Potassium 5.0 (3.5-5.1) mmol/L Chloride 108 H (98-107) mmol/L Carbon Dioxide 27 (21-32) mmol/L Anion Gap 3.0 (3-11) BUN 38 H (7-18) mg/dl Creatinine 1.27 (0.6-1.4) mg/dl Est Cr Clr Drug Dosing 39.1 ml/min Est GFR ( Amer) 59.7 Est GFR (Non-Af Amer) 51.5 BUN/Creatinine Ratio 29.9 H (10-20) Glucose 101 H (70-99) mg/dl Estimat Average Glucose 128 mg/dl Hemoglobin A1c 6.1 H (4.5-5.6) % Calcium 9.3 (8.5-10.1) mg/dl Albumin 4.0 (3.4-5.0) gm/dl Urine Color Yellow Urine Appearance Clear (Clear) Urine pH 6.0 (4.5-7.5) Ur Specific [place] 1.010 (1.000-1.030) Urine Protein Negative (Negative) Urine Glucose (UA) Negative (Negative) Urine Ketones Negative (Negative) Urine Blood Negative (Negative) Urine Nitrite Negative (Negative) Urine Bilirubin Negative (Negative) Urine Urobilinogen Negative (Negative) Ur Leukocyte Esterase Negative (Negative) COVID-19 Eval Order SARS-CoV-2, RNA, NAAT (NEGATIVE) Blood Type Antibody Screen 09/09/20 09/09/20 09/09/20 Range/Units Unknown Unknown Unknown WBC (4.8-10.8) K/uL RBC (4.7-6.1) M/uL Hgb (14.0-18.0) g/dL Hct (42-52) % MCV (80-100) fL MCH (25-34) pg MCHC (32-36) g/dL RDW Std Deviation (36.4-46.3) fL RDW Coeff of Chloe (11.5-14.5) % Plt Count (130-400) K/uL MPV (7.4-10.4) fL Immature Gran % (Auto) % Neut % (Auto) % Lymph % (Auto) % [place] % (Auto) % Eos % (Auto) % Baso % (Auto) % Neut # (Auto) (1.4-6.5) K/uL Lymph # (Auto) (1.2-3.4) K/uL [place] # (Auto) (0.11-0.59) K/uL Eos # (Auto) (0-0.5) K/uL Baso # (Auto) (0-0.2) K/uL Immature Gran # (Auto) (0.00-0.02) K/uL PT (9.0-12.0) Seconds INR (0.9-1.1) APTT (21.0-31.0) Seconds PTT Ratio Sodium (136-145) mmol/L Potassium (3.5-5.1) mmol/L Chloride (98-107) mmol/L Carbon Dioxide (21-32) mmol/L Anion Gap (3-11) BUN (7-18) mg/dl Creatinine (0.6-1.4) mg/dl Est Cr Clr Drug Dosing ml/min Est GFR ( Amer) Est GFR (Non-Af Amer) BUN/Creatinine Ratio (10-20) Glucose (70-99) mg/dl Estimat Average Glucose mg/dl Hemoglobin A1c (4.5-5.6) % Calcium (8.5-10.1) mg/dl Albumin (3.4-5.0) gm/dl Urine Color Urine Appearance (Clear) Urine pH (4.5-7.5) Ur Specific [place] (1.000-1.030) Urine Protein (Negative) Urine Glucose (UA) (Negative) Urine Ketones (Negative) Urine Blood (Negative) Urine Nitrite (Negative) Urine Bilirubin (Negative) Urine Urobilinogen (Negative) Ur Leukocyte Esterase (Negative) COVID-19 Eval Order Cancelled Covid19 [facility] SARS-CoV-2, RNA, NAAT NEGATIVE (NEGATIVE) Blood Type Antibody Screen 09/10/20 09/10/20 Range/Units 07:31 07:31 WBC 9.59 (4.8-10.8) K/uL RBC 3.38 L (4.7-6.1) M/uL Hgb 11.4 L (14.0-18.0) g/dL Hct 33.1 L (42-52) % MCV 97.9 (80-100) fL MCH 33.7 (25-34) pg MCHC 34.4 (32-36) g/dL RDW Std Deviation 46.0 (36.4-46.3) fL RDW Coeff of Chloe 12.8 (11.5-14.5) % Plt Count 260 (130-400) K/uL MPV 10.6 H (7.4-10.4) fL Immature Gran % (Auto) 0.2 % Neut % (Auto) 81.2 % Lymph % (Auto) 7.0 % [place] % (Auto) 11.6 % Eos % (Auto) 0.0 % Baso % (Auto) 0.0 % Neut # (Auto) 7.79 H (1.4-6.5) K/uL Lymph # (Auto) 0.67 L (1.2-3.4) K/uL [place] # (Auto) 1.11 H (0.11-0.59) K/uL Eos # (Auto) 0.00 (0-0.5) K/uL Baso # (Auto) 0.00 (0-0.2) K/uL Immature Gran # (Auto) 0.02 (0.00-0.02) K/uL PT (9.0-12.0) Seconds INR (0.9-1.1) APTT (21.0-31.0) Seconds PTT Ratio Sodium 140 (136-145) mmol/L Potassium 4.2 (3.5-5.1) mmol/L Chloride 108 H (98-107) mmol/L Carbon Dioxide 25 (21-32) mmol/L Anion Gap 7.0 (3-11) BUN 33 H (7-18) mg/dl Creatinine 1.41 H (0.6-1.4) mg/dl Est Cr Clr Drug Dosing 35.2 ml/min Est GFR ( Amer) 52.6 Est GFR (Non-Af Amer) 45.4 BUN/Creatinine Ratio 23.5 H (10-20) Glucose 108 H (70-99) mg/dl Estimat Average Glucose mg/dl Hemoglobin A1c (4.5-5.6) % Calcium 8.9 (8.5-10.1) mg/dl Albumin (3.4-5.0) gm/dl Urine Color Urine Appearance (Clear) Urine pH (4.5-7.5) Ur Specific [place] (1.000-1.030) Urine Protein (Negative) Urine Glucose (UA) (Negative) Urine Ketones (Negative) Urine Blood (Negative) Urine Nitrite (Negative) Urine Bilirubin (Negative) Urine Urobilinogen (Negative) Ur Leukocyte Esterase (Negative) COVID-19 Eval Order SARS-CoV-2, RNA, NAAT (NEGATIVE) Blood Type Antibody Screen Total Time Total Time Spent Total Time Spent (In Minutes): 20 Discharge Plan Discharge Items Patient Disposition: Home - Self-Care Reason For Visit: Right Shoulder Tendinopathy Discharge Diagnosis: Right shoulder arthropathy/tendinopathy Activity: Per Instructions section Weightbearing: Right non-weightbearing Weightbearing Comment: Nonweightbearing right upper extremity Non-emergency contact: Surgeon Call non-emergency contact if: your pain is not controlled, your temperature is above 101.5, your wound has increased redness and your wound has increased drainage Follow-up/Referrals: Andres Irving MD [Primary Care Provider] - Diet: Regular Addtl Attending Provider Instructions: CONTINUE TO MAINTAIN YOUR HYDRATION BY DRINKING PLENTY OF WATER DAILY. ACTIVITY RECOMMENDATIONS: SELF CARE INSTRUCTIONS AFTER TOTAL SHOULDER ARTHROPLASTY REVERSE A. You may do daily exercises as taught in physical therapy while in hospital. No lifting with the operative arm. B. You are to wear your sling/immobilizer at all times EXCEPT when performing your daily exercises and for hygiene purposes. C. You may perform dry, daily dressing changes. Please keep your incision covered. You may shower 48 hours after surgery. Do not apply soap or any ointme nt/lotions directly over incision. Do not soak incision in bath tub/swimming pool. D. You may use ice as needed to operative shoulder. SPECIAL CARE INSTRUCTIONS: VERY IMPORTANT TO READ AND REVIEW A. There are a few signs you need to watch for after you are home. Call [facility] at [phone] if you experience any of the followin. Increased severe shoulder pain. Some pain is expected especially when you exercise. 2. Increased swelling in you shoulder or arm; pain or swelling in either upper extremity. 3. Any fluid drainage from the incision. 4. Shortness of breath or chest pain. B. Please call [facility] at [phone] if you have any questions or concerns about your operation or recovery. C. Call your physician if: 1. Temperature is greater than 101 degrees (F). 2. Pain is not relieved by prescribed pain medications. 3. Increase drainage or redness from incision. 4. Unanswered questions or concerns. FOLLOW UP VISIT: Please call [facility] at [phone] to schedule a follow up appointment with Dr. Noe or his PA in 12-14 days from your surgery date. Addtl [employer] Operator Provider Instructions: Please hold off on taking your lisinopril on the evening of 09/10, but you can restart it on the evening of 09/11. Please have your primary care physician check your kidney function in about 1 week with blood work. Visit Report Forms: Smoking Cessation Stand-Alone Forms: [employer], Opioid Pain Management, Work/School Release (Inpt), Smoking Cessation Medications and DC Order Prescriptions: New acetaminophen 500 mg Tablet 1,000 mg PO Q8 14 Days Qty: 84 RF: 0 polyethylene glycol 3350 [Miralax] 17 gram powder in packet 17 g PO DAILY PRN (Reason: constipation) Qty: 5 RF: 0 oxycodone 5 mg Tablet 5 mg PO Q4H MDD 6 PRN (Reason: pain) Qty: 30 RF: 0 Continued lisinopril 20 mg Tablet 20 mg PO PM RF: 0 aspirin 81 mg Tablet,Delayed Release (Dr/Ec) 81 mg PO PM RF: 0 omeprazole magnesium [Prilosec OTC] 20 mg Tablet,Delayed Release (Dr/Ec) 20 mg PO BID RF: 0 psyllium 3.4 gram/5.8 gram Powder 3.4 g PO QAM RF: 0 One-A-Day Men's 50 Plus 400-20-370 mcg Tablet 1 tab PO PM RF: 0 Macular Health Formula 5-1-7.5 mg Capsule 1 cap PO PM RF: 0 Discontinued naproxen sodium [Aleve] 220 mg Tablet 220 mg PO BID PRN (Reason: Pain) RF: 0 Discharge Orders: Discharge Order (Routine); Ordered 09/10/20 Ordered By: Neal Petersen/Other Patient Handouts: A1C Admission Data Admit Date/Time: 09/09/20 12:48 Attending Provider: Yusuf Noe Admit Provider: Yusuf Noe Primary Care Provider: Andres Irving Other Providers: Rosanne Batista Other Interventions: Discharge Summary Assessment (RN) Last Done: 09/10/20 13:35
== END 2020-09-10 14:54 | disposition home or self-care (01) ==
LOC: ASU 07:20 → 3E 07:20